=== PATIENT | female | born 1985 | race Caucasian/White ===

== ENCOUNTER → 2017-03-22 | Outpatient (CLI) | payer MEDICAID | LOC: HPND 08:50 | DX: O35.2XX0 Maternal care for (suspected) hereditary disease in fetus, not applicable or unspecified (principal) | CPT/HCPCS: 76816 ==

== ENCOUNTER 2017-05-11 08:53 | Inpatient (IN) | payer MEDICAID ==
[~2017-05-11] VITALS: Ht 167.6 cm; Wt 124.3 kg
[2017-05-11] MEDS: LACTATED RINGER'S 1000 ML INJ 1,000 ML IV SCH (14:29)
[2017-05-11] MEDS ORDERED: DOCUSATE SODIUM 100 MG CAP PO PRN (14:30)
[2017-05-11] MEDS ORDERED: CALCIUM GLUCONATE 10% 1 GM/10 ML VIAL IV PUSH PRN (14:30)
[2017-05-11] MEDS ORDERED: SODIUM CHLORIDE 0.9% FLUSH 5 ML FLUSH IV PRN (14:30)
[2017-05-11] MEDS ORDERED: ONDANSETRON ODT 4 MG TAB PO PRN (14:30)
--- NOTE | 2017-05-11 14:36 | HHI.HP ---
HPI Chief Complaint Pre-Eclampsia Date Seen: May 11, 2017 Travel History International Travel<30 Days: No Contact w/Intl Traveler<30Days: No History of Present Illness HPI Mrs. Quesada is a 31 y/o at 35/5 weeks gestation presenting from [facility] for pre-eclampsia. Patient is seen by [facility] in [place], [place], for her care with Dr. Dick. She was referred to [facility] for elevated blood pressures and elevated 24-hour urine protein suggestive for possible preeclampsia. Per chart review patient's blood pressure in office has been up to 151/88 with her most recent 24-hour urine collection collecting 400 mg of protein. She endorses blurry vision, headaches, and one syncopal episode over the last week. She states that her headaches are increasing in length throughout the day. Her blurry vision is accompanied by seeing spots and does accompany her headaches. She states that the syncopal episode occurred at work and lasted for less than "a few minutes." She denied any seizure-like activity, bowel/bladder incontinence, or post ictal state. Patient states that she has been on an unknown hypertension medication but believes it has been labetalol twice a day 100 mg. She does have a previous history of preeclampsia diagnosed in her second full-term at 39 weeks. She was induced at the time of the diagnosis and administered magnesium sulfate during delivery. She was then treated for approximately 3 years for hypertension, however she reports that she has not required blood pressure medication for the last 4 years. This has also been complicated by gestational diabetes. She states that she is diet-controlled and her blood sugar runs from 80-110s. She has no other complaints and ROS is otherwise negative. Weeks Gestation: 35 Para: 2 : 5 History Past Medical History Narrative Medical Gestational Diabetes Chronic HTN Obesity Obstetric History Obstetric History Second - Term delivery without complications Third - Induced delivery at 39 weeks secondary to pre-eclampsia First and Fourth spontaneous abortions Current with gestational diabetes and PIH Past Surgical History Surgical History: No Previous Surgery Family History Family History: Negative Social History Alcohol Use: No Tobacco Use: No Substance Abuse: No Allergies-Medications (Allergen,Severity, Reaction): Coded Allergies: penicillin G (Verified Allergy, Mild, Hives, 05/11/17) Review of Systems Except as stated in HPI: all other systems reviewed are Neg Physical Exam Narrative GENERAL: Well-nourished, well-developed patient. SKIN: Warm and dry. HEAD: Normocephalic and atraumatic. EYES: No scleral icterus. No injection or drainage. ENT: No nasal drainage noted. Mucous membranes pink. Airway patent. NECK: Supple, trachea midline. No JVD. CARDIOVASCULAR: Regular rate and rhythm without murmurs, gallops, or rubs. RESPIRATORY: Breath sounds equal bilaterally. No accessory muscle use. ABDOMEN/GI: Abdomen soft, non-tender, bowel sounds present, no rebound, no guarding. No right upper quadrant pain. Gravid to 35 weeks size GENITOURINARY: External Genitalia: intact and normal in appearance Cervix: Posterior Dilatation: Closed Effacement: 0% Station: -3 Membranes: Intact Uterine Contractions: None FHT's: Category: 1 Baseline: 140s Reactive: Positive Variability: Moderate Decels: None EXTREMITIES: No cyanosis or edema. Deep tendon reflexes within normal limits. BACK: Nontender without obvious deformity. No CVA tenderness. NEUROLOGICAL: Awake and alert. Motor and sensory grossly within normal limits. Five out of 5 muscle strength in all muscle groups. Normal speech. Caprini VTE Risk Assessment Caprini VTE Risk Assessment: Mod/High Risk (score >= 2) Caprini Risk Assessment Model Point Value = 1 Point Value = 2 Point Value = 3 Point Value = 5 Age 41-60 Minor surgery BMI > 25 kg/m2 Swollen legs Varicose veins or History of unexplained or recurrent spontaneous Oral contraceptives or hormone replacement Sepsis (< 1 month) Serious lung disease, including pneumonia (< 1 month) Abnormal pulmonary function Acute myocardial infarction Congestive heart failure (< 1 month) History of inflammatory bowel disease Medical patient at bed rest Age 61-74 Arthroscopic surgery Major open surgery (> 45 min) Laparoscopic surgery (> 45 min) Malignancy Confined to bed (> 72 hours) Immobilizing plaster cast Central venous access Age >= 75 History of VTE Family history of VTE Factor V Leiden Prothrombin [id number] Lupus anticoagulant Anticardiolipin antibodies Elevated serum homocysteine Heparin-induced thrombocytopenia Other congenital or acquired thrombophilia Stroke (< 1 month) Elective arthroplasty Hip, pelvis, or leg fracture Acute spinal cord injury (< 1 month) Prophylaxis Regimen Total Risk Factor Score Risk Level Prophylaxis Regimen 0-1 Low Early ambulation 2 Moderate Order ONE of the following: *Sequential Compression Device (SCD) *Heparin 5000 units SQ BID 3-4 Higher Order ONE of the following medications: *Heparin 5000 units SQ TID *Enoxaparin/Lovenox 40 mg SQ daily (WT < 150 kg, CrCl > 30 mL/min) *Enoxaparin/Lovenox 30 mg SQ daily (WT < 150 kg, CrCl > 10-29 mL/min) *Enoxaparin/Lovenox 30 mg SQ BID (WT < 150 kg, CrCl > 30 mL/min) AND/OR *Sequential Compression Device (SCD) 5 or more Highest Order ONE of the following medications: *Heparin 5000 units SQ TID (Preferred with Epidurals) *Enoxaparin/Lovenox 40 mg SQ daily (WT < 150 kg, CrCl > 30 mL/min) *Enoxaparin/Lovenox 30 mg SQ daily (WT < 150 kg, CrCl > 10-29 mL/min) *Enoxaparin/Lovenox 30 mg SQ BID (WT < 150 kg, CrCl > 30 mL/min) AND *Sequential Compression Device (SCD) Data Data Vital Signs Reviewed: Yes Orders Orders Us Ob Bpp [facility] Art Dopp/Rpt (05/11/17 ) Assessment/Plan Problem List: (1) 35 weeks gestation of ICD Codes: Z3A.35 - 35 weeks gestation of (2) Pre-eclampsia ICD Codes: O14.90 - Unspecified pre-eclampsia, unspecified trimester Assessment and Plan Mrs. Quesada is a 31 y/o at 35/5 weeks gestation presenting from [facility] for pre-eclampsia who will be admitted for induction of labor at 36 weeks after receiving steroids for lung development. 1. IUP at 35 weeks -Continue routine OB care -Encourage hydration -Continue vitamin -GBS screen: Ordered 2. Preeclampsia -Patient with documented blood pressures to the 150s/80s with 24-hour urine protein of greater than 400 -Patient referred to [facility] who recommends induction -Patient currently without symptoms -CBC, CMP, and uric acid ordered -Patient admitted to antepartum service at this time with plans to induce labor at 36 weeks of (05/13) -Betamethasone 12 mg injection ordered for today, 05/11, and tomorrow 05/12 -Continue Labetalol 100mg BID 3. Gestational diabetes -Monitor glucose before every meal and nightly -Diet OB carb consistent diet SDW: Anatoliy Ervin MD R2 May 11, 2017 14:36
[2017-05-11] MEDS ORDERED: BETAMETHASONE SOD PHOS/ACETATE SUSP 30 MG/5 ML VIAL IM ONE (16:00)
[2017-05-11 16:24] VITALS: BP 130/45; PULSE 103
[2017-05-11 16:45] VITALS: RESP 20
[2017-05-11 16:58] LABS: HEMATOCRIT 35.2 % (35.0-46.0); MEAN CELL VOLUME 82.5 FL (80.0-100.0); MEAN CORPUSCULAR HEMOGLOBIN 26.8 PG (27.0-34.0); MEAN CORPUSCULAR HGB CONC 32.4 % (32.0-36.0); PLATELET COUNT 259 TH/MM3 (150-450); RED BLOOD COUNT 4.27 MIL/MM3 (4.00-5.30); RED CELL DISTRIBUTION WIDTH 14.4 % (11.6-17.2); REVIEW FLAG FINAL; WHITE BLOOD COUNT 10.2 TH/MM3 (4.0-11.0)
[2017-05-11 17:22] LABS: ANION GAP 9 MEQ/L (5-15); AST (GOT) 28 U/L (15-37); BICARBONATE 24.5 MEQ/L (21.0-32.0); BLOOD UREA NITROGEN 5 MG/DL (7-18); CHLORIDE 105 MEQ/L (98-107); GLOMERULAR FILTRATION RATE 186 ML/MIN (>89); POTASSIUM 3.5 MEQ/L (3.5-5.1); SODIUM (NA) 138 MEQ/L (136-145); URIC ACID 4.8 MG/DL (2.6-6.0)
[2017-05-11 17:23] LABS: ALT (GPT) 46 U/L (10-53)
[2017-05-11 17:26] LABS: ALKALINE PHOSPHATASE 88 U/L (45-117); TOTAL BILIRUBIN ADULT 0.5 MG/DL (0.2-1.0)
[2017-05-11 19:43] VITALS: RESP 20; TEMP 98.5
[2017-05-11 19:44] VITALS: BP 122/65; PULSE 88
[2017-05-11] MEDS: SODIUM CHLORIDE 0.9% FLUSH 5 ML FLUSH IV SCH (21:00)
[2017-05-11] MEDS: LABETALOL HCL 100 MG TAB PO SCH (21:30)
[2017-05-11] MEDS ORDERED: DEXTROSE 50% IN WATER 50 ML VIAL(D50) IV PUSH PRN (23:00)
[2017-05-11] MEDS ORDERED: GLUCAGON 1 MG/ML VIAL OTHER PRN (23:00)
[2017-05-11 23:06] VITALS: BP 127/75; PULSE 106
[2017-05-12] VITALS (14 sets, daily range): BP systolic 105–138; BP diastolic 58–80; PULSE 18–118; RESP 17–18; TEMP 98.2–98.6
[2017-05-12] MEDS: LACTATED RINGER'S 1000 ML INJ 1,000 ML IV SCH ×2 (03:49→17:09)
[2017-05-12] MEDS: INDIVIDUALIZED INSULIN NOVOLIN REGULAR SUPPLEMENTAL SCALE SQ SCH ×2 (07:00→11:31)
[2017-05-12 08:11] LABS: BACTERIA, URINE RARE /hpf; BLOOD, URINE NEG (NEG); COMMENT (UR) CULT NOT INDICATED; CULTURE IF INDICATED CULT NOT INDICATED; GLUCOSE,URINE NEG (NEG); KETONE, URINE 80 mg/dL (NEG); MUCUS URINE FEW /lpf (OCC); NITRITE,URINE NEG (NEG); PH, URINE 6.5 (5.0-8.5); SQUAMOUS EPITHELIAL CELL URINE 5 /hpf (0-5); URINE COLOR YELLOW (YELLW/STRAW)
--- NOTE | 2017-05-12 08:13 | PD.OB.ANTE ---
Subjective Diagnosis: (1) 35 weeks gestation of Diagnosis: Principal (2) Pre-eclampsia Diagnosis: Principal Interval History Patient seen and examined this morning a medical team. No acute events overnight per nursing staff. Vital signs remained stable. Patient reports only complaint has a mild headache this morning that has resolved without medication. She denies any visual changes, right upper quadrant pain, dizziness , or other neurologic symptoms. She states her glucose was elevated last night likely secondary to her steroid injection. Otherwise she has no complaints and denies a complete review of systems. Antepartum ROS: Reports: New complaints, movement normal, Denies: Loss of fluid, Vaginal bleeding, Contractions Objective Vital Signs Vital Signs Date Time Temp Pulse Resp B/P (MAP) Pulse Ox O2 Delivery O2 Flow Rate FiO2 05/12/17 06:03 115 138/80 (99) 05/12/17 06:02 98.6 18 05/12/17 02:08 100 114/58 (76) 05/11/17 23:06 106 127/75 (92) 05/11/17 19:44 88 122/65 (84) 05/11/17 19:43 98.5 20 05/11/17 16:45 20 05/11/17 16:24 103 130/45 (73) Lab & Micro Results Test 05/11/17 16:20 White Blood Count 10.2 TH/MM3 Red Blood Count 4.27 MIL/MM3 Hemoglobin 11.4 GM/DL Hematocrit 35.2 % Mean Corpuscular Volume 82.5 FL Mean Corpuscular Hemoglobin 26.8 PG Mean Corpuscular Hemoglobin Concent 32.4 % Red Cell Distribution Width 14.4 % Platelet Count 259 TH/MM3 Mean Platelet Volume 8.7 FL Blood Urea Nitrogen 5 MG/DL Creatinine 0.40 MG/DL Random Glucose 76 MG/DL Total Protein 6.5 GM/DL Albumin 2.5 GM/DL Calcium Level 8.7 MG/DL Uric Acid 4.8 MG/DL Alkaline Phosphatase 88 U/L Aspartate Amino Transf (AST/SGOT) 28 U/L Alanine Aminotransferase (ALT/SGPT) 46 U/L Total Bilirubin 0.5 MG/DL Sodium Level 138 MEQ/L Potassium Level 3.5 MEQ/L Chloride Level 105 MEQ/L Carbon Dioxide Level 24.5 MEQ/L Anion Gap 9 MEQ/L Estimat Glomerular Filtration Rate 186 ML/MIN Physical Exam GENERAL: Well-nourished, well-developed patient. CARDIOVASCULAR: Regular rate and rhythm without murmurs, gallops, or rubs. RESPIRATORY: Breath sounds equal bilaterally. No accessory muscle use. ABDOMEN/GI: Abdomen soft, non-tender. Fundus: 35 weeks FHT's: Category: 1 Baseline: 140s Reactive: Positive Variability: Moderate Decels: None EXTREMITIES: No cyanosis or edema, non-tender, without signs of DVT. Reflexes within normal limits. Assessment and Plan Problem List: (1) 35 weeks gestation of ICD Codes: Z3A.35 - 35 weeks gestation of Status: Acute (2) Pre-eclampsia ICD Codes: O14.90 - Unspecified pre-eclampsia, unspecified trimester Status: Acute Assessment and Plan Mrs. Quesada is a 31 y/o at 35/5 weeks gestation presenting from [facility] for pre-eclampsia who will be admitted for induction of labor at 36 weeks after receiving steroids for lung development. 1. IUP at 35 weeks -Continue routine OB care -Encourage hydration -Continue vitamin -GBS screen: Pending -UA: Pending 2. Preeclampsia -Patient with documented blood pressures to the 150s/80s with 24-hour urine protein of greater than 400 -Patient referred to [facility] who recommends induction -Patient currently without symptoms -CBC: WBC 10.2, H/H 11/35, platelets 259 -CMP: Within normal limits, AST 28, ALT 46 -Uric acid: 4.8 -Patient admitted to antepartum service at this time with plans to induce labor at 36 weeks of (05/13) -Betamethasone 12 mg injection on 05/11 at approximately 1600, second injection of ordered 05/12 at 1600 -Continue Labetalol 100mg BID 3. Gestational diabetes -Monitor glucose before every meal and nightly -Diet OB carb consistent diet -Sliding-scale insulin per protocol DW: Anatoliy Ervin MD R2 May 12, 2017 08:13
[2017-05-12] MEDS: CALCIUM CARBONATE 500 MG CHEWABLE TAB CHEW SCH ×2 (08:25→20:39)
[2017-05-12] MEDS: MULTIVIT/MIN/PREN/FOL AC/IRON PRENATAL TAB PO SCH (08:25)
[2017-05-12] MEDS: SODIUM CHLORIDE 0.9% FLUSH 5 ML FLUSH IV SCH ×2 (08:25→21:00)
[2017-05-12] MEDS: LABETALOL HCL 100 MG TAB PO SCH ×2 (08:25→20:39)
[2017-05-12] MEDS ORDERED: BETAMETHASONE SOD PHOS/ACETATE SUSP 30 MG/5 ML VIAL IM ONE (16:00)
[2017-05-12] MEDS: INSULIN NovoLIN REGULAR SUPPLEMENTAL SCALE SQ SCH ×2 (16:38→22:10)
[2017-05-13] VITALS (25 sets, daily range): BP systolic 110–140; BP diastolic 55–73; PULSE 90–112; RESP 18–20; TEMP 98.1–98.7
[2017-05-13] MEDS: LACTATED RINGER'S 1000 ML INJ 1,000 ML IV SCH (06:08)
[2017-05-13] MEDS: INSULIN NovoLIN REGULAR SUPPLEMENTAL SCALE SQ SCH ×2 (08:00→13:06)
[2017-05-13] MEDS: SODIUM CHLORIDE 0.9% FLUSH 5 ML FLUSH IV SCH (08:58)
[2017-05-13] MEDS: LABETALOL HCL 100 MG TAB PO SCH (08:59)
[2017-05-13] MEDS: MULTIVIT/MIN/PREN/FOL AC/IRON PRENATAL TAB PO SCH (08:59)
[2017-05-13] MEDS: CALCIUM CARBONATE 500 MG CHEWABLE TAB CHEW SCH (09:00)
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
[2017-05-13 12:42] LABS: HEMATOCRIT 33.1 % (35.0-46.0); MEAN CELL VOLUME 83.4 FL (80.0-100.0); MEAN CORPUSCULAR HEMOGLOBIN 26.8 PG (27.0-34.0); MEAN CORPUSCULAR HGB CONC 32.2 % (32.0-36.0); PLATELET COUNT 280 TH/MM3 (150-450); RED BLOOD COUNT 3.97 MIL/MM3 (4.00-5.30); RED CELL DISTRIBUTION WIDTH 14.7 % (11.6-17.2); REVIEW FLAG FINAL; WHITE BLOOD COUNT 12.7 TH/MM3 (4.0-11.0)
[2017-05-13 13:09] LABS: ANION GAP 8 MEQ/L (5-15); AST (GOT) 19 U/L (15-37); BICARBONATE 25.5 MEQ/L (21.0-32.0); BLOOD UREA NITROGEN 9 MG/DL (7-18); CHLORIDE 106 MEQ/L (98-107); GLOMERULAR FILTRATION RATE 138 ML/MIN (>89); POTASSIUM 3.7 MEQ/L (3.5-5.1); SODIUM (NA) 139 MEQ/L (136-145)
[2017-05-13 13:10] LABS: ALT (GPT) 36 U/L (10-53)
[2017-05-13 13:12] LABS: ALKALINE PHOSPHATASE 81 U/L (45-117); TOTAL BILIRUBIN ADULT 0.3 MG/DL (0.2-1.0)
--- NOTE | 2017-05-13 15:09 | HHI.PR ---
Addendum to Inpatient Note Addendum Reason: Additional Documentation Additional Information Patient to be discharged home today. Patient's blood pressures remain below severe limits as well as her CBC and CMP. Patient's protein to creatinine ratio is 0.27. She currently meets criteria for chronic hypertension with superimposed preeclampsia without severe features. She will be discharged home with instructions to return to OB diagnostics for repeat BPP with Doppler tomorrow at 1300. She is to continue her labetalol 100 mg twice a day. She is also been scheduled for an induction next 05/20/17, at 37 weeks gestation. DW: Dr. Rodriguez (Anatoliy Ahumada MD R2) Additional Information Patient seen and evaluated with resident under direct supervision, agree with assessment and plan. (Nehemiah Rodriguez MD) Anatoliy Ahumada MD R2 May 13, 2017 15:09 Nehemiah Rodriguez MD May 13, 2017 15:11
[2017-05-13] MEDS ORDERED: LABE100T2 PO (15:10)
--- NOTE | 2017-05-13 15:12 | HHI.DCPOC ---
Discharge Care Plan Diagnosis: (1) Pre-eclampsia Report Symptoms to Your Doctor -Temperature above 100.5 degrees -Redness, of incision or excessive or foul smelling drainage -Unusual pain or calf pain -Increased vaginal bleeding -Painful or difficulty urinating -Feelings of extreme sadness or anxiety after 2 weeks Goals to Promote Your Health * To prevent worsening of your condition and complications * To maintain your health at the optimal level Directions to Meet Your Goals Take your medications as prescribed Follow your dietary instruction Follow activity as directed Ensure plenty of rest for recovery Drink fluids for hydration Keep your appointments as scheduled Take your immunizations and boosters as scheduled If your symptoms worsen call your PCP, if no PCP go to Urgent Care Center or Emergency Room Smoking is Dangerous to Your Health. Avoid second hand smoke Call the 24-hour crisis hotline for domestic abuse at Anatoliy Ahumada MD R2 May 13, 2017 15:12 Nehemiah Rodriguez MD May 13, 2017 15:14
== END 2017-05-13 15:28 | disposition home or self-care (01) | DRG 781 ==
LOC: HPND 08:53 → H2EB 11:01 → OBSVTOIN 16:16
PROVIDERS: ADMIT Obstetrics & Gynecology Maternal & Fetal Medicine; ATTEND Obstetrics & Gynecology Maternal & Fetal Medicine
DX: O11.3 Pre-existing hypertension with pre-eclampsia, third trimester (principal); Z68.41 Body mass index [BMI] 40.0-44.9, adult; O24.410 Gestational diabetes mellitus in pregnancy, diet controlled; E66.9 Obesity, unspecified; O99.213 Obesity complicating pregnancy, third trimester; Z3A.35 35 weeks gestation of pregnancy; O10.013 Pre-existing essential hypertension complicating pregnancy, third trimester
CPT/HCPCS: 76816; 76818; 76820; 80053; 81001; 82570; 82948; 84156; 84550; 85027; J0702

== ENCOUNTER 2017-05-14 13:35 | Emergency (ER) | payer MEDICAID, OTHER ==
[~2017-05-14 13:35] MED LIST: LABE100T2 PO
--- NOTE | 2017-05-14 14:44 | PD ---
HPI Chief Complaint BPP and BP check Date Seen: May 14, 2017 Time Seen: 14:41 Travel History International Travel<30 Days: No Contact w/Intl Traveler<30Days: No Known Affected Area: No History of Present Illness HPI 31yo at 36 weeks gestation here for BPP and BP check. Was discharged yesterday after BP evaluation and 24 hr urine protein. Patient on labetalol for chronic hypertension and is returning on Tuesday at 37 weeks for induction of labor due to proteinuria. BP 116/72 Weeks Gestation: 36 Para: 2 : 3 Last Menstrual Period: May 14, 2017 Allergies-Medications (Allergen,Severity, Reaction): Coded Allergies: penicillin G (Verified Allergy, Mild, Hives, 05/11/17) Home Meds Active Scripts Labetalol (Labetalol) 100 Mg Tab, 100 MG PO Q12HR, #60 TAB Prov:Anatoliy Ahumada MD R2 05/13/17 Physical Exam Narrative GENERAL: Well-nourished, well-developed patient. SKIN: Warm and dry. HEAD: Normocephalic and atraumatic. EYES: No scleral icterus. No injection or drainage. ENT: No nasal drainage noted. Mucous membranes pink. Airway patent. NECK: Supple, trachea midline. No JVD. CARDIOVASCULAR: Regular rate and rhythm without murmurs, gallops, or rubs. RESPIRATORY: Breath sounds equal bilaterally. No accessory muscle use. BREASTS: Bilateral exam showed no masses , no retractions, no nipple discharge. ABDOMEN/GI: Abdomen soft, non-tender, bowel sounds present, no rebound, no guarding Gravid to [-] weeks size Fundal Height: [-] GENITOURINARY: External Genitalia: intact and normal in appearance BUS glands: [-] Cervix: [-] Dilatation: [-] Effacement: [-] Station: [-] Presentation: [-] Membranes: [intact or ruptured] Uterine Contractions: [-] FHT's: Category: [-] Baseline: [-] Reactive: [-] Variability: [-] Decels: [-] EXTREMITIES: No cyanosis or edema. BACK: Nontender without obvious deformity. No CVA tenderness. NEUROLOGICAL: Awake and alert. Motor and sensory grossly within normal limits. Five out of 5 muscle strength in all muscle groups. Normal speech. Data Data Vital Signs Reviewed: Yes Orders Orders Vital Signs (Adult) .ON ADMISSION (05/14/17 14:00) ^ Labor Status (05/14/17 14:00) Us Ob Bpp Wo Nst W Umb Art Dop (05/14/17 14:00) MDM Medical Record Reviewed: Yes Plan BPP 06/14 36 weeks with chronic hypertension and mild superimposed preeclampsia for induction at 37 weeks (next Tuesday) Diagnosis Diagnosis: Primary Impression: 36 weeks gestation of Additional Impressions: Chronic hypertension affecting Mild pre-eclampsia Disposition: 01 DISCHARGE HOME Patient Instructions: General Instructions, Preeclampsia (ED) Departure Forms: Tests/Procedures Tasha Herrera MD May 14, 2017 14:44
== END 2017-05-14 14:47 | disposition home or self-care (01) ==
LOC: HOBED 13:35
DX: O11.3 Pre-existing hypertension with pre-eclampsia, third trimester (principal); Z3A.36 36 weeks gestation of pregnancy; Z79.899 Other long term (current) drug therapy; Z88.0 Allergy status to penicillin
CPT/HCPCS: 59025; 76819; 76820

== ENCOUNTER 2017-05-18 07:48 | Inpatient (IN) | payer MEDICAID, OTHER ==
[2017-05-18] VITALS (114 sets, daily range): BP systolic 99–135; BP diastolic 45–89; PULSE 77–111; RESP 14–18; TEMP 98.1–98.4; O2SAT 98–100
[~2017-05-18] VITALS: Ht 167.6 cm; Wt 122.0 kg
--- NOTE | 2017-05-18 09:25 | PD ---
HPI Chief Complaint Headache with swelling Date Seen: May 18, 2017 (Anatoliy Ahumada MD R2) Travel History International Travel<30 Days: No Contact w/Intl Traveler<30Days: No (Anatoliy Ahumada MD R2) History of Present Illness HPI Mrs. Quesada is a 31-year-old presenting at 36/5 weeks gestation for headaches and lower extremity swelling. Patient was recently hospitalized and diagnosed with preeclampsia with recommendations tenderness at 37 weeks gestation (05/20). She was discharged home and returned on 05/14 for repeat BPP that was 06/14. Today she presents with mild headache and lower extremity swelling. She states the headache is "not bad" but wanted to make sure everything was okay. She also endorses mild right sided flank pain since this morning. She endorses no visual changes, right upper quadrant pain, loss of fluid, vaginal bleeding, discharge, or other neurological symptoms. She has no other complaints. Complete review of systems is otherwise negative. (Anatoliy Ahumada MD R2) History Past Medical History Narrative Medical Gestational Diabetes Chronic HTN Obesity (Anatoliy Ahumada MD R2) Obstetric History Obstetric History Second - Term delivery without complications Third - Induced delivery at 39 weeks secondary to pre-eclampsia First and Fourth spontaneous abortions Current with gestational diabetes and PIH (Anatoliy Ahumada MD R2) Past Surgical History Surgical History: No Previous Surgery (Anatoliy Ahumada MD) Family History Family History: Negative (Anatoliy Ahumada MD) Social History Alcohol Use: No Tobacco Use: No Substance Abuse: No (Anatoliy Ahumada MD R2) Allergies-Medications (Allergen,Severity, Reaction): Coded Allergies: penicillin G (Verified Allergy, Mild, Hives, 05/11/17) Home Meds Active Scripts Labetalol (Labetalol) 100 Mg Tab, 100 MG PO Q12HR, #60 TAB Prov:Anatoliy Ahumada MD R2 05/13/17 Review of Systems Except as stated in HPI: all other systems reviewed are Neg Neurologic: Headache (Anatoliy Ahumada MD R2) Physical Exam Narrative GENERAL: Well-nourished, well-developed patient. SKIN: Warm and dry. HEAD: Normocephalic and atraumatic. EYES: No scleral icterus. No injection or drainage. ENT: No nasal drainage noted. Mucous membranes pink. Airway patent. NECK: Supple, trachea midline. No JVD. CARDIOVASCULAR: Regular rate and rhythm without murmurs, gallops, or rubs. RESPIRATORY: Breath sounds equal bilaterally. No accessory muscle use. ABDOMEN/GI: Abdomen soft, non-tender, bowel sounds present, no rebound, no guarding Gravid to 36/5 GENITOURINARY: External Genitalia: intact and normal in appearance Cervix: Posterior Dilatation: 1-2cm Effacement: 50% Station: -3 Presentation: Cephalic Membranes: Intact Uterine Contractions: Q4min originally, has since stopped FHT's: Category: 1 Baseline: 150s Reactive: Positive Variability: Moderate Decels: None EXTREMITIES: No cyanosis. Trace edema on BL LE. BACK: Nontender without obvious deformity. No CVA tenderness. NEUROLOGICAL: Awake and alert. Motor and sensory grossly within normal limits. Five out of 5 muscle strength in all muscle groups. Normal speech. (Anatoliy Ahumada MD R2) Data Data Vital Signs Reviewed: Yes Orders Orders Vital Signs (Adult) .ON ADMISSION (05/18/17 08:57) ^ Labor Status (05/18/17 08:57) ^ Non Stress Test (05/18/17 08:57) ^ Hydration (05/18/17 08:57) Cbc No Diff, Includes Plts (05/18/17 08:57) Comprehensive Metabolic Panel (05/18/17 08:57) Us Ob Bpp Wo Nst (05/18/17 08:57) (Anatoliy Ahumada MD R2) [facility] Medical Record Reviewed: Yes Plan Mrs. Quesada is a 31 y/o at 36/5 weeks gestation with pre-eclampsia presenting with mild headache. 1. IUP at 36 weeks -Continue routine OB care -Encourage hydration -Continue vitamin -GBS screen: Ordered -Betamethasone 12 mg injection received 05/11 and 05/12 2. Preeclampsia -Patient with documented blood pressures to the 150s/80s with 24-hour urine protein of greater than 400 previously; currently 140/79 -Patient referred to [facility] who recommends induction at 37 weeks, 05/20 -Patient currently with mild R sided headache in the frontotemporal area -CBC and CMP ordered -Urine dipstick with trace protein only -BPP ordered with OB diagnostics, most recent 06/14 on 05/14 -Continue Labetalol 100mg BID, received this morning 3. Gestational diabetes -Diet controlled -Continue to monitor SDW: Dr. Whitaker Update: Patient seen for after BPP by Dr. Morales, [facility], for evaluation who recommends induction at this time. Patient agrees with medical plan and all questions answered. Orders placed. SDW: Dr. Sanchez (Anatoliy Ahumada MD R2) Diagnosis Diagnosis: Primary Impression: 36 weeks gestation of Additional Impressions: Gestational diabetes Pre-eclampsia Attestation Patient seen and examined. Agree with resident's assessment/plan. (Hailee Sanchez MD) Anatoliy Ahumada MD R2 May 18, 2017 09:25 Hailee Sanchez MD May 18, 2017 11:52
[2017-05-18 09:40] LABS: HEMATOCRIT 33.9 % (35.0-46.0); MEAN CORPUSCULAR HEMOGLOBIN 27.8 PG (27.0-34.0); MEAN CORPUSCULAR HGB CONC 33.5 % (32.0-36.0); PLATELET COUNT 239 TH/MM3 (150-450); RED BLOOD COUNT 4.08 MIL/MM3 (4.00-5.30); RED CELL DISTRIBUTION WIDTH 15.1 % (11.6-17.2); REVIEW FLAG FINAL; WHITE BLOOD COUNT 10.4 TH/MM3 (4.0-11.0)
[2017-05-18 09:41] LABS: ANION GAP 9 MEQ/L (5-15); AST (GOT) 15 U/L (15-37); BICARBONATE 23.9 MEQ/L (21.0-32.0); BLOOD UREA NITROGEN 10 MG/DL (7-18); CHLORIDE 103 MEQ/L (98-107); GLOMERULAR FILTRATION RATE 147 ML/MIN (>89); POTASSIUM 3.6 MEQ/L (3.5-5.1); SODIUM (NA) 136 MEQ/L (136-145)
[2017-05-18 09:42] LABS: ALT (GPT) 23 U/L (10-53)
[2017-05-18 09:44] LABS: ALKALINE PHOSPHATASE 94 U/L (45-117); TOTAL BILIRUBIN ADULT 0.3 MG/DL (0.2-1.0)
[2017-05-18] MEDS: LACTATED RINGER'S 1000 ML INJ 1,000 ML IV SCH ×2 (11:35→23:28)
[2017-05-18] MEDS ORDERED: LACTATED RINGER'S 1000 ML INJ 1,000 ML IV PRN (11:35)
--- NOTE | 2017-05-18 11:43 | HHI.HP ---
History & Physical H&P HPI Chief Complaint Headache with swelling Date Seen: May 18, 2017 Travel History International Travel<30 Days: No Contact w/Intl Traveler<30Days: No History of Present Illness HPI Mrs. Quesada is a 31-year-old presenting at 36/5 weeks gestation for headaches and lower extremity swelling. Patient was recently hospitalized and diagnosed with preeclampsia with recommendations tenderness at 37 weeks gestation (05/20). She was discharged home and returned on 05/14 for repeat BPP that was 06/14. Today she presents with mild headache and lower extremity swelling. She states the headache is "not bad" but wanted to make sure everything was okay. She also endorses mild right sided flank pain since this morning. She endorses no visual changes, right upper quadrant pain, loss of fluid, vaginal bleeding, discharge, or other neurological symptoms. She has no other complaints. Complete review of systems is otherwise negative. History (Limited) History Past Medical History Narrative Medical Gestational Diabetes Chronic HTN Obesity Obstetric History Obstetric History Second - Term delivery without complications Third - Induced delivery at 39 weeks secondary to pre-eclampsia First and Fourth spontaneous abortions Current with gestational diabetes and PIH Past Surgical History Surgical History: No Previous Surgery Family History Family History: Negative Social History Alcohol Use: No Tobacco Use: No Substance Abuse: No Allergies-Medications Allergies-Medications (Allergen,Severity, Reaction): Coded Allergies: penicillin G (Verified Allergy, Mild, Hives, 05/11/17) Home Meds Active Scripts Labetalol (Labetalol) 100 Mg Tab, 100 MG PO Q12HR, #60 TAB Prov:Anatoliy Ahumada MD R2 05/13/17 ROS Review of Systems Except as stated in HPI: all other systems reviewed are Neg Neurologic: Headache Physical Exam Physical Exam Narrative GENERAL: Well-nourished, well-developed patient. SKIN: Warm and dry. HEAD: Normocephalic and atraumatic. EYES: No scleral icterus. No injection or drainage. ENT: No nasal drainage noted. Mucous membranes pink. Airway patent. NECK: Supple, trachea midline. No JVD. CARDIOVASCULAR: Regular rate and rhythm without murmurs, gallops, or rubs. RESPIRATORY: Breath sounds equal bilaterally. No accessory muscle use. ABDOMEN/GI: Abdomen soft, non-tender, bowel sounds present, no rebound, no guarding Gravid to 36/5 GENITOURINARY: External Genitalia: intact and normal in appearance Cervix: Posterior Dilatation: 1-2cm Effacement: 50% Station: -3 Presentation: Cephalic Membranes: Intact Uterine Contractions: Q4min originally, has since stopped FHT's: Category: 1 Baseline: 150s Reactive: Positive Variability: Moderate Decels: None EXTREMITIES: No cyanosis. Trace edema on BL LE. BACK: Nontender without obvious deformity. No CVA tenderness. NEUROLOGICAL: Awake and alert. Motor and sensory grossly within normal limits. Five out of 5 muscle strength in all muscle groups. Normal speech. Data Data Data Vital Signs Reviewed: Yes Orders Orders Vital Signs (Adult) .ON ADMISSION (05/18/17 08:57) ^ Labor Status (05/18/17 08:57) ^ Non Stress Test (05/18/17 08:57) ^ Hydration (05/18/17 08:57) Cbc No Diff, Includes Plts (05/18/17 08:57) Comprehensive Metabolic Panel (05/18/17 08:57) Us Ob Bpp Wo Nst (05/18/17 08:57) [facility] MDM Medical Record Reviewed: Yes Plan Mrs. Quesada is a 31 y/o at 36/5 weeks gestation with pre-eclampsia presenting with mild headache. 1. IUP at 36 weeks -Continue routine OB care -Encourage hydration -Continue vitamin -GBS screen: Ordered -Betamethasone 12 mg injection received 05/11 and 05/12 2. Preeclampsia -Patient with documented blood pressures to the 150s/80s with 24-hour urine protein of greater than 400 previously; currently 140/79 -Patient referred to [facility] who recommends induction at 37 weeks, 05/20 -Patient currently with mild R sided headache in the frontotemporal area -CBC and CMP ordered -Urine dipstick with trace protein only -BPP ordered with OB diagnostics, most recent 06/14 on 05/14 -Continue Labetalol 100mg BID, received this morning 3. Gestational diabetes -Diet controlled -Continue to monitor SDW: Dr. Whitaker Update: Patient seen for after BPP by Dr. Morales, [facility], for evaluation who recommends induction at this time. Patient agrees with medical plan and all questions answered. Orders placed. SDW: Dr. Sanchez Diagnosis Diagnosis: Primary Impression: 36 weeks gestation of Additional Impressions: Gestational diabetes Pre-eclampsia (Anatoliy Ahumada MD R2) H&P Patient seen and examined. History of CHTN, superimposed Pre Eclampsia, and Gestational DM. Per D/w MFM, induction is recommended. R/B/A of induction d/w patient. All questions answered. (Hailee Sanchez MD) Anatoliy Ahumada MD R2 May 18, 2017 11:43 Hailee Sanchez MD May 18, 2017 11:51
[2017-05-18] MEDS ORDERED: CITRIC ACID-SODIUM CITRATE LIQ 30 ML UDC PO SCH (11:45)
[2017-05-18] MEDS ORDERED: ONDANSETRON HCL 4 MG/2 ML VIAL IV PRN (11:45)
[2017-05-18] MEDS ORDERED: OXYTOCIN 30 UNITS-500ML PREMIX 500 ML IV ONE (11:45)
[2017-05-18] MEDS ORDERED: MINERAL OIL 10 ML VIAL TOPICAL PRN (11:45)
[2017-05-18] MEDS ORDERED: LIDOCAINE HCL 1% 50 ML VIAL INFIL PRN (11:45)
[2017-05-18] MEDS ORDERED: LIDOCAINE HCL 1% 50 ML VIAL I-DERMAL PRN (11:45)
[2017-05-18] MEDS ORDERED: SODIUM CHLOR 0.9% 1000 ML INJ 1,000 ML IV PRN (11:55)
[2017-05-18] MEDS ORDERED: SODIUM CHLORID 0.9% 500 ML INJ 500 ML IV PRN (12:00)
[2017-05-18 13:30] LABS: AUTOMATED NEUTROPHIL # 7.8 TH/MM3 (1.8-7.7); BASOPHIL # 0.1 TH/MM3 (0-0.2); BASOPHIL % 0.5 % (0.0-2.0); EOSINOPHIL % 0.2 % (0.0-4.0); HEMATOCRIT 35.5 % (35.0-46.0); HEMO FLAGS DIFF FINAL; LYMPH % 26.8 % (9.0-44.0); LYMPHOCYTE # 3.2 TH/MM3 (1.0-4.8); MEAN CELL VOLUME 83.5 FL (80.0-100.0); MEAN CORPUSCULAR HEMOGLOBIN 27.5 PG (27.0-34.0); MEAN CORPUSCULAR HGB CONC 32.9 % (32.0-36.0); MONO % 7.8 % (0.0-8.0); NEUT % 64.7 % (16.0-70.0); PLATELET COUNT 275 TH/MM3 (150-450); RED BLOOD COUNT 4.25 MIL/MM3 (4.00-5.30); RED CELL DISTRIBUTION WIDTH 14.9 % (11.6-17.2); WHITE BLOOD COUNT 12.1 TH/MM3 (4.0-11.0)
[2017-05-18] MEDS: MAGNESIUM SULFATE 40 GM PREMIX 1,000 ML IV SCH (13:54)
[2017-05-18 13:56] LABS: BACTERIA, URINE MOD /hpf; BLOOD, URINE NEG (NEG); COMMENT (UR) CULTURE INDICATED; CULTURE IF INDICATED CULTURE INDICATED; GLUCOSE,URINE NEG (NEG); KETONE, URINE 10 mg/dL (NEG); MUCUS URINE FEW /lpf (OCC); NITRITE,URINE NEG (NEG); PH, URINE 6.5 (5.0-8.5); SQUAMOUS EPITHELIAL CELL URINE 33 /hpf (0-5); URINE COLOR YELLOW (YELLW/STRAW)
[2017-05-18] MEDS ORDERED: DEXTROSE 50% IN WATER 50 ML VIAL(D50) IV PRN (14:00)
[2017-05-18] MEDS ORDERED: MAGNESIUM SULFATE 4 GM PREMIX 100 ML IV ONE (14:00)
[2017-05-18] MEDS ORDERED: GLUCAGON 1 MG/ML VIAL OTHER PRN (14:00)
[2017-05-18] MEDS ORDERED: MISOPROSTOL 25 MCG SUPP VAGINAL ONE (14:00)
[2017-05-18] MEDS: INSULIN ASPART SUPPLEMENTAL SCALE SQ SCH ×2 (15:32→21:00)
[2017-05-18 18:07] LABS: RUBELLA IGG ANTIBODY 19.5 IU/mL (10.0-500.0); RUBELLA STATUS IMMUNE (IMMUNE)
[2017-05-18] MEDS: MISOPROSTOL 25 MCG SUPP VAGINAL PRN (20:11)
[2017-05-19] VITALS (89 sets, daily range): BP systolic 121–139; BP diastolic 71–86; PULSE 41–226; RESP 14–20; TEMP 97.7–98.1; O2SAT 98–100
[2017-05-19] MEDS: MISOPROSTOL 25 MCG SUPP VAGINAL PRN ×2 (00:25→04:43)
[2017-05-19] MEDS: LACTATED RINGER'S 1000 ML INJ 1,000 ML IV SCH ×3 (03:35→19:35)
--- NOTE | 2017-05-19 08:26 | PD.OB.ANTE ---
Subjective Diagnosis: (1) 36 weeks gestation of Diagnosis: Principal (2) Pre-eclampsia Diagnosis: Principal (3) Gestational diabetes Diagnosis: Principal Interval History Patient seen and examined at bedside. Pt stated she had a headache that resolved with medication. Pt on cytotec x4 and magnesium bag. Pt denies N/V, RUQ abdominal pain, vision changes, CP. Antepartum ROS: Denies: New complaints (Nirmala Lynn MD R1) Attestation Patient seen and examined. Cervix- 1-2 ext/FT int. S/p cytotec 25mcg x 4. Will continue with 50mcg of cytotec. Continue Magnesium Sulfate. Continue to closely monitor. All questions answered. (Hailee Sanchez MD) Objective Vital Signs Vital Signs Date Time Temp Pulse Resp B/P (MAP) Pulse Ox O2 Delivery O2 Flow Rate FiO2 05/19/17 07:30 97.9 20 05/19/17 07:25 143 05/19/17 07:10 86 05/19/17 07:05 61 05/19/17 07:01 87 125/72 (89) 05/19/17 07:00 92 05/19/17 06:45 100 05/19/17 06:40 91 05/19/17 06:30 191 05/19/17 06:30 18 05/19/17 06:05 95 05/19/17 06:01 101 123/73 (90) 05/19/17 06:00 88 05/19/17 06:00 100 05/19/17 05:10 77 05/19/17 05:01 85 124/71 (88) 05/19/17 05:00 100 05/19/17 04:30 97.8 16 05/19/17 04:30 84 05/19/17 04:20 42 05/19/17 04:15 41 05/19/17 04:10 41 05/19/17 04:05 43 05/19/17 04:01 81 133/72 (92) 05/19/17 04:00 99 05/19/17 03:40 78 05/19/17 03:35 83 05/19/17 03:15 86 05/19/17 03:10 86 05/19/17 03:05 79 05/19/17 03:01 82 136/83 (100) 05/19/17 03:00 14 100 05/19/17 03:00 79 05/19/17 02:55 77 05/19/17 02:50 88 05/19/17 02:45 79 05/19/17 02:40 80 05/19/17 02:35 85 05/19/17 02:30 85 05/19/17 02:25 84 05/19/17 02:20 79 05/19/17 02:15 86 05/19/17 02:10 86 05/19/17 02:05 83 05/19/17 02:05 83 05/19/17 02:01 84 129/82 (98) 05/19/17 02:00 84 05/19/17 02:00 16 100 05/19/17 01:55 81 05/19/17 01:50 87 05/19/17 01:45 83 05/19/17 01:40 89 05/19/17 01:35 86 05/19/17 01:30 87 05/19/17 01:25 88 05/19/17 01:20 86 05/19/17 01:15 84 05/19/17 01:10 85 05/19/17 01:05 85 05/19/17 01:01 82 125/82 (96) 05/19/17 01:00 85 05/19/17 01:00 98 05/19/17 00:55 84 05/19/17 00:50 81 05/19/17 00:45 84 05/19/17 00:40 79 05/19/17 00:35 83 05/19/17 00:30 83 05/19/17 00:25 84 05/19/17 00:20 84 05/19/17 00:15 87 05/19/17 00:10 85 05/19/17 00:05 83 05/19/17 00:01 88 135/84 (101) 05/19/17 00:00 100 05/19/17 00:00 80 05/19/17 00:00 97.7 05/19/17 00:00 18 05/18/17 23:55 87 05/18/17 23:50 79 05/18/17 23:45 78 05/18/17 23:40 81 05/18/17 23:35 78 05/18/17 23:30 77 05/18/17 23:25 77 05/18/17 23:20 77 05/18/17 23:15 83 05/18/17 23:10 78 05/18/17 23:05 82 05/18/17 23:01 80 128/70 (89) 05/18/17 23:00 83 05/18/17 23:00 100 05/18/17 22:11 87 135/75 (95) 05/18/17 22:10 87 05/18/17 22:05 83 05/18/17 22:01 82 05/18/17 22:00 98 05/18/17 22:00 85 05/18/17 21:55 83 05/18/17 21:50 85 05/18/17 21:45 82 05/18/17 21:40 81 05/18/17 21:35 82 05/18/17 21:30 91 05/18/17 21:15 89 05/18/17 21:10 99 05/18/17 21:05 90 05/18/17 21:01 95 107/50 (69) 05/18/17 21:00 98 05/18/17 21:00 97 05/18/17 20:05 92 05/18/17 20:05 93 100 05/18/17 20:05 98.1 14 05/18/17 20:01 105 128/62 (84) 05/18/17 20:00 97 100 05/18/17 20:00 98 05/18/17 19:55 99 05/18/17 19:55 99 100 05/18/17 19:50 100 05/18/17 19:50 98 99 05/18/17 19:45 97 100 05/18/17 19:45 96 05/18/17 19:35 99 05/18/17 19:35 98 99 05/18/17 19:31 98 128/75 (92) 05/18/17 19:30 100 05/18/17 19:30 100 05/18/17 19:30 99 05/18/17 19:25 101 99 05/18/17 19:25 103 05/18/17 19:20 100 99 05/18/17 19:20 99 05/18/17 19:15 108 100 05/18/17 19:15 106 05/18/17 19:10 99 100 9/13/17 19:10 100 13/17 19:05 100 13/17 19:05 107 13/17 19:05 109 13/17 19:01 103 128/57 (80) 05/18/17 19:00 100 13/17 19:00 102 05/18/17 19:00 101 05/18/17 18:55 106 05/18/17 18:55 99 05/18/17 18:55 103 05/18/17 18:50 99 13/17 18:50 99 13/17 18:50 97 05/18/17 18:45 103 05/18/17 18:45 105 17 18:45 100 05/18/17 18:40 97 05/18/17 18:40 98 05/18/17 18:35 93 05/18/17 18:35 94 05/18/17 18:31 93 130/89 (103) 17 18:30 100 05/18/17 18:30 99 17 18:25 101 05/18/17 18:25 102 05/18/17 18:20 100 05/18/17 18:20 99 05/18/17 18:15 93 05/18/17 18:15 92 05/18/17 18:10 99 05/18/17 18:10 98 05/18/17 18:08 98.1 05/18/17 18:05 100 05/18/17 18:05 99 05/18/17 18:02 100 126/70 (88) 17 18:00 18 05/18/17 18:00 103 05/18/17 18:00 103 05/18/17 17:55 97 05/18/17 17:55 98 13/17 17:50 92 13/17 17:50 93 13/17 17:45 101 13/17 17:45 102 13/17 17:40 105 13/17 17:40 105 13/17 17:35 97 13/17 17:35 98 13/17 17:32 111 126/52 (76) 13/17 17:30 102 13/17 17:30 104 13/17 17:25 106 05/18/17 17:25 105 05/18/17 17:20 97 05/18/17 17:20 93 05/18/17 17:15 104 05/18/17 17:15 102 05/18/17 17:10 96 05/18/17 17:10 96 05/18/17 17:05 102 05/18/17 17:05 103 05/18/17 17:01 98 120/77 (91) 05/18/17 17:00 94 05/18/17 17:00 94 05/18/17 17:00 17 05/18/17 16:55 102 05/18/17 16:55 103 05/18/17 16:50 98 05/18/17 16:50 97 05/18/17 16:45 91 05/18/17 16:45 91 05/18/17 16:40 98 05/18/17 16:40 96 05/18/17 16:35 92 05/18/17 16:35 93 05/18/17 16:31 98 112/72 (85) 05/18/17 16:30 104 05/18/17 16:30 104 05/18/17 16:26 90 107/45 (65) 05/18/17 16:25 99 05/18/17 16:25 99 05/18/17 16:21 102 118/67 (84) 05/18/17 16:20 94 05/18/17 16:20 94 05/18/17 16:16 91 116/53 (74) 05/18/17 16:15 98 05/18/17 16:15 98 05/18/17 16:11 112/66 (81) 05/18/17 16:11 99 05/18/17 16:10 97 05/18/17 16:10 97 05/18/17 16:06 91 05/18/17 16:06 106/67 (80) 05/18/17 16:05 93 05/18/17 16:05 93 05/18/17 16:01 95 109/60 (76) 05/18/17 16:00 88 05/18/17 16:00 98.4 16 05/18/17 16:00 87 05/18/17 15:56 94 119/66 (83) 05/18/17 15:55 88 05/18/17 15:55 89 05/18/17 15:51 89 118/54 (75) 05/18/17 15:50 90 05/18/17 15:50 92 05/18/17 15:46 93 115/53 (73) 05/18/17 15:45 89 05/18/17 15:41 95 109/52 (71) 05/18/17 15:40 91 05/18/17 15:36 91 116/69 (85) 05/18/17 15:35 97 05/18/17 15:31 102 112/69 (83) 05/18/17 15:30 103 05/18/17 15:26 106 99/65 (76) 05/18/17 15:25 104 05/18/17 15:21 94 122/63 (82) 05/18/17 15:20 99 05/18/17 15:18 98.4 05/18/17 15:15 96 116/68 (84) 05/18/17 15:15 93 05/18/17 15:10 89 05/18/17 15:07 92 122/47 (72) 05/18/17 14:55 92 Lab & Micro Results Test 05/18/17 09:05 05/18/17 11:50 05/18/17 13:30 05/18/17 17:15 White Blood Count 10.4 TH/MM3 12.1 TH/MM3 Red Blood Count 4.08 MIL/MM3 4.25 MIL/MM3 Hemoglobin 11.3 GM/DL 11.7 GM/DL Hematocrit 33.9 % 35.5 % Mean Corpuscular Volume 83.0 FL 83.5 FL Mean Corpuscular Hemoglobin 27.8 PG 27.5 PG Mean Corpuscular Hemoglobin Concent 33.5 % 32.9 % Red Cell Distribution Width 15.1 % 14.9 % Platelet Count 239 TH/MM3 275 TH/MM3 Mean Platelet Volume 9.3 FL 10.2 FL Blood Urea Nitrogen 10 MG/DL Creatinine 0.49 MG/DL Random Glucose 94 MG/DL Total Protein 6.6 GM/DL Albumin 2.6 GM/DL Calcium Level 9.2 MG/DL Alkaline Phosphatase 94 U/L Aspartate Amino Transf (AST/SGOT) 15 U/L Alanine Aminotransferase (ALT/SGPT) 23 U/L Total Bilirubin 0.3 MG/DL Sodium Level 136 MEQ/L Potassium Level 3.6 MEQ/L Chloride Level 103 MEQ/L Carbon Dioxide Level 23.9 MEQ/L Anion Gap 9 MEQ/L Estimat Glomerular Filtration Rate 147 ML/MIN Neutrophils (%) (Auto) 64.7 % Lymphocytes (%) (Auto) 26.8 % Monocytes (%) (Auto) 7.8 % Eosinophils (%) (Auto) 0.2 % Basophils (%) (Auto) 0.5 % Neutrophils # (Auto) 7.8 TH/MM3 Lymphocytes # (Auto) 3.2 TH/MM3 Monocytes # (Auto) 0.9 TH/MM3 Eosinophils # (Auto) 0.0 TH/MM3 Basophils # (Auto) 0.1 TH/MM3 CBC Comment DIFF FINAL Differential Comment Urine Color YELLOW Urine Turbidity HAZY Urine pH 6.5 Urine Specific [place] 1.021 Urine Protein TRACE mg/dL Urine Glucose (UA) NEG mg/dL Urine Ketones 10 mg/dL Urine Occult Blood NEG Urine Nitrite NEG Urine Bilirubin NEG Urine Urobilinogen LESS THAN 2.0 MG/DL Urine Leukocyte Esterase LARGE Urine RBC 5 /hpf Urine WBC 7 /hpf Urine Squamous Epithelial Cells 33 /hpf Urine Bacteria MOD /hpf Urine Mucus FEW /lpf Microscopic Urinalysis Comment CULTURE INDICATED Group B Streptococcus (PCR) NEGATIVE HIV (1&2) Antibody NEGATIVE Rubella Immunity Screen IMMUNE Rubella Antibody, Quantitative 19.5 IU/mL Test 05/18/17 23:57 Magnesium Level 4.4 MG/DL Date/Time Source Procedure Growth Status 05/18/17 13:30 Genital Genital Region Group B Streptococcus Screen Pending Received 05/18/17 11:50 Urine Clean Catch Urine Culture Pending Received Physical Exam GENERAL: Well-nourished, well-developed patient. CARDIOVASCULAR: Regular rate and rhythm without murmurs, gallops, or rubs. RESPIRATORY: Breath sounds equal bilaterally. No accessory muscle use. ABDOMEN/GI: Abdomen soft, non-tender. GENITOURINARY: External Genitalia: intact and normal in appearance Cervix: posterior Dilatation: 0-1 Effacement: 30 Station: -3 Presentation: vertex Membranes: intact Uterine Contractions: irregular contractions FHT's: Category: cat1 Baseline: 130 Reactive: positive Variability: moderate Decels: none EXTREMITIES: No cyanosis or edema, non-tender, without signs of DVT. (Nirmala Lynn MD R1) Assessment and Plan Problem List: (1) 36 weeks gestation of ICD Codes: Z3A.36 - 36 weeks gestation of Status: Acute (2) Pre-eclampsia ICD Codes: O14.90 - Unspecified pre-eclampsia, unspecified trimester Status: Acute (3) Gestational diabetes ICD Codes: O24.419 - Gestational diabetes mellitus in , unspecified control Status: Acute Assessment and Plan 31 yo at 36/5 with pre-eclampsia and gestational diabetes admitted for induction of labor. 1. IUP at 36/5 -continue routine care -encourage hydration -cytotec x4 for induction of labor, plan to cytotec to 50mcg at next dosing 2. pre-eclampsia -pt on magnesium -exam wnl 3. Gestational diabetes -continue with sliding scale sdw Dr. Sanchez and Dr. Ahumada (Nirmala Lynn MD R1) Nirmala Lynn MD R1 May 19, 2017 08:26 Hailee Sanchez MD May 19, 2017 09:04
[2017-05-19] MEDS: INSULIN ASPART SUPPLEMENTAL SCALE SQ SCH ×3 (09:00→17:00)
[2017-05-19] MEDS ORDERED: MISOPROSTOL 100 MCG TAB VAGINAL ONE (09:00)
[2017-05-19] MEDS: MAGNESIUM SULFATE 40 GM PREMIX 1,000 ML IV SCH (09:49)
[2017-05-19] MEDS ORDERED: PILL SPLITTER OTHER PRN (10:15)
[2017-05-19] MEDS ORDERED: OB CCAP2 (14:55)
[2017-05-19] MEDS ORDERED: OXYTOCIN 30 UNITS-500ML PREMIX 500 ML ONE (20:29)
[2017-05-19] MEDS ORDERED: fentaNYL 2MCG-BUPIV 0.125% INJ 100 ML ONE (23:54)
[2017-05-20] VITALS (15 sets, daily range): BP systolic 82–120; BP diastolic 34–72; PULSE 70–102; RESP 18; TEMP 97.8–98.3
[2017-05-20] MEDS: LACTATED RINGER'S 1000 ML INJ 1,000 ML IV SCH ×2 (03:35→08:37)
[2017-05-20] MEDS ORDERED: OXYTOCIN 30 UNITS/NS 500ML PREMIX IV SCH (04:45)
[2017-05-20] MEDS ORDERED: NO SYSTEM NARCOTICS PRN (05:00)
[2017-05-20] MEDS ORDERED: fentaNYL 2MCG-BUPIV 0.125% 100 ML EPIDURAL SCH (05:00)
[2017-05-20] MEDS ORDERED: ePHEDrine/NS 25 MG/5 ML SYR IV PRN (05:00)
[2017-05-20] MEDS ORDERED: DO NOT ADMINISTER ANTICOAGULANTS PRN (05:00)
[2017-05-20] MEDS: MAGNESIUM SULFATE 40 GM PREMIX 1,000 ML IV SCH (05:40)
--- NOTE | 2017-05-20 09:16 | PD.LABORPN ---
Subjective Subjective Patient seen and examined by medical team this morning. No acute events overnight per nursing staff. Vital signs currently stable. Patient endorses no headaches, visual changes, right upper quadrant pain, or other neurological symptoms. Patient has no complaints and denies complete review of systems. Objective Vital Signs Vital Signs Date Time Temp Pulse Resp B/P (MAP) Pulse Ox O2 Delivery O2 Flow Rate FiO2 05/20/17 06:23 18 05/20/17 05:01 18 Objective Pelvic Exam: Cervix: Mid position Dilatation: 9-10 cm Effacement: 100% Station: 0 Presentation: Vertex Membranes: AROM Uterine Contractions: 2-3m FHT's: Category: 2 Baseline: 150s Reactive: Positive Variability: Moderate Decels: Possible variable decelerations with intermittent accelerations Weeks Gestation: 37 Gest Age Assessed Date: May 20, 2017 Gest Age Assessed Time: 08:49 Pt started active labor?: Yes Active labor start date: May 19, 2017 Active labor start time: 23:50 Medical induction of labor?: Yes Medical induction start date: May 18, 2017 Medical induction start time: 14:00 Artificial rupture of membrane: Yes Artificial ROM date: May 19, 2017 Artifical ROM time: 16:53 Assessment/Plan Problem List: (1) 36 weeks gestation of ICD Codes: Z3A.36 - 36 weeks gestation of Status: Acute (2) Pre-eclampsia ICD Codes: O14.90 - Unspecified pre-eclampsia, unspecified trimester Status: Acute (3) Gestational diabetes ICD Codes: O24.419 - Gestational diabetes mellitus in , unspecified control Status: Acute Assessment and Plan Mrs. Quesada is a 31-year-old at 37 weeks currently in active labor. 1. IUP at 37 weeks -Continue routine OB care -Patient currently in active labor with Pitocin at 4 mU/m -No complaints per patient -FHT category 2, continue to monitor 2. Pre-eclampsia -Patient currently on Mg Sulfate infusion -Exam WNL -VS WNL SDW: Anatoliy Ervin MD R2 May 20, 2017 09:16
--- NOTE | 2017-05-20 09:42 | PD.OB.DELI ---
Weeks gestation: 37 Gest age assessed date: May 20, 2017 Gest age assessed time: 08:49 Pt started active labor?: Yes Active labor start date: May 19, 2017 Active labor start time: 23:50 Medical induction of labor?: Yes Medical induction start date: May 18, 2017 Medical induction start time: 14:00 Artificial rupture of membrane: Yes Artificial ROM date: May 19, 2017 Artifical ROM time: 16:53 Anesthesia: Epidural Episiotomy: None Vaginal Delivery: Normal Presentation: Occiput anterior Nuchal Cord: None Delayed cord clamping (45 sec): Yes Infant: Female Delivery date: May 20, 2017 Delivery time: 09:24 One Minute : 8 Five Minute : 9 Weight: 2595 Placenta: Spontaneous delivery Laceration: No lacerations Estimated blood loss: 250 Additional Information delivery provider: Dr. Ted polancow: Nirmala Weinberg MD May 20, 2017 09:42
[2017-05-20] MEDS ORDERED: ONDANSETRON ODT 4 MG TAB PO PRN (09:45)
[2017-05-20] MEDS ORDERED: BENZOCAINE 20% TOPICAL SPRAY 60 ML CAN TOPICAL PRN (09:45)
[2017-05-20] MEDS ORDERED: WITCH HAZEL 50%/GLYCERIN 12.5% 40 PAD JAR TOPICAL PRN (09:45)
[2017-05-20] MEDS ORDERED: SODIUM CHLORIDE 0.9% FLUSH 10 ML FLUSH IV FLUSH PRN (09:45)
[2017-05-20] MEDS ORDERED: ALUMINUM/MAGNESIUM/SIMETH 30 ML CUP PO PRN (09:45)
[2017-05-20] MEDS ORDERED: DOCUSATE SODIUM 50 MG/SENNA 8.6 MG TAB PO PRN (09:45)
[2017-05-20] MEDS ORDERED: OXYTOCIN 30 UNITS-500ML PREMIX 500 ML IV SCH (11:00)
[2017-05-20] MEDS ORDERED: MEASLES, MUMPS, RUBELLA VACCINE 0.5 ML VIAL SQ ONE (16:00)
[2017-05-20] MEDS ORDERED: DIPHTH/TETANUS/ACEL PERTUSSIS (BOOSTER) 0.5 ML VIAL/PFS IM ONE (16:00)
[2017-05-20] MEDS: IBUPROFEN 600 MG TAB PO PRN (19:50)
[2017-05-20] MEDS ORDERED: ZOLPIDEM TARTRATE 5 MG TAB PO PRN (21:00)
[2017-05-20] MEDS ORDERED: SODIUM CHLORIDE 0.9% FLUSH 10 ML FLUSH IV FLUSH SCH (21:00)
[2017-05-20] MEDS: ACETAMINOPHEN 325 MG TAB PO PRN (22:10)
[2017-05-21] VITALS (16 sets, daily range): BP systolic 86–140; BP diastolic 50–83; PULSE 63–94; RESP 16–20; TEMP 97.7–98
--- NOTE | 2017-05-21 09:15 | HHI.OB ---
Subjective Post Day: 1 Remarks Pt is a 31 yo now, s/p IOL for pre-eclampsia superimposed on Chronic HTN. She was also diet controlled gestational diabetic. She denies any symptoms Voiding well, moderate lochia. No LE pain. Objective Vitals/I&O Vital Signs Date Time Temp Pulse Resp B/P (MAP) Pulse Ox O2 Delivery O2 Flow Rate FiO2 05/21/17 07:01 68 90/58 (69) 05/21/17 06:30 18 05/21/17 06:01 74 90/57 (68) 05/21/17 05:06 69 95/65 (75) 05/21/17 04:01 63 93/56 (68) 05/21/17 03:13 16 05/21/17 03:01 65 95/63 (74) 05/21/17 02:01 66 88/58 (68) 05/21/17 01:01 65 86/50 (62) 05/21/17 00:01 77 101/60 (74) 05/20/17 23:01 72 82/34 (50) 05/20/17 22:01 70 92/44 (60) 05/20/17 21:58 18 05/20/17 21:00 86 108/65 (79) 05/20/17 20:25 18 05/20/17 20:25 97.8 05/20/17 20:00 101 107/66 (80) 05/20/17 19:00 100 109/67 (81) 05/20/17 18:01 91 107/72 (84) 05/20/17 18:00 18 05/20/17 17:00 18 05/20/17 17:00 98.3 87 120/62 (81) 05/20/17 16:00 102 115/67 (83) 05/20/17 15:07 18 05/20/17 15:00 18 05/20/17 15:00 100 115/63 (80) 05/20/17 14:00 101 119/64 (82) 05/20/17 13:00 18 Objective Remarks GENERAL: Well-nourished, well-developed patient. CARDIOVASCULAR: Regular rate and rhythm without murmurs, gallops, or rubs. RESPIRATORY: Breath sounds equal bilaterally. No accessory muscle use. ABDOMEN/GI: Abdomen soft, non-tender. Fundus: Firm, non-tender at umbilicus. GENITOURINARY: Light to moderate bleeding. EXTREMITIES: No cyanosis or edema, non-tender, without signs of DVT. Medications and IVs Current Medications Medications (Trade) Dose Ordered Sig/Jacquelyn Route Start Time Stop Time Status Last Admin (D50w (Vial) Inj) 50 ml UNSCH PRN IV 05/18/17 14:00 (Glucagon Inj) 1 mg UNSCH PRN OTHER 05/18/17 14:00 (NovoLOG SUPPLEMENTAL SCALE) 1 ACHS SLIDING SCALE SQ 05/18/17 17:00 05/19/17 09:00 Magnesium Sulfate 1,000 ml @ 50 mls/hr Q20H IV 05/18/17 13:54 05/20/17 05:40 (Pill Splitter) 1 ea UNSCH PRN OTHER 05/19/17 10:15 Fentanyl/ Bupivacaine HCl 100 ml @ 0 mls/hr TITRATE EPIDURAL 05/20/17 05:00 05/20/17 05:01 (NS Flush) 2 ml BID IV FLUSH 05/20/17 21:00 (NS Flush) 2 ml UNSCH PRN IV FLUSH 05/20/17 09:45 (Tylenol) 650 mg Q4H PRN PO 05/20/17 09:45 05/20/17 22:10 (Motrin) 600 mg Q6H PRN PO 05/20/17 09:45 05/20/17 19:50 (Americaine 20% Top Spr) 1 spray Q4H PRN TOPICAL 05/20/17 09:45 (Tucks Pads) 1 applic QID PRN TOPICAL 05/20/17 09:45 (Cheryl-Colace) 2 tab Q12H PRN PO 05/20/17 09:45 (Ambien) 5 mg HS PRN PO 05/20/17 21:00 (Mag-Al Plus Susp Liq) 15 ml Q8H PRN PO 05/20/17 09:45 (Zofran Odt) 4 mg Q6H PRN PO 05/20/17 09:45 Assessment/Plan Problem List: (1) Pre-eclampsia ICD Codes: O14.90 - Unspecified pre-eclampsia, unspecified trimester Status: Acute (2) Gestational diabetes ICD Codes: O24.419 - Gestational diabetes mellitus in , unspecified control Status: Resolved Assessment and Plan 31 yo P2, s/p . IOL for pre-eclampsia. 1. Pre-eclampsia Pt was placed on Magnessium sulphate . BPs low. Will discontinue Mag Sulphate 3. Gestational diabetes Fasting glucose 101. Discontinue glucose testing. Likely DC home tomorrow. Esteban Tan MD May 21, 2017 09:15
[2017-05-21 09:29] LABS: HEMATOCRIT 33.2 % (35.0-46.0); MEAN CELL VOLUME 82.7 FL (80.0-100.0); MEAN CORPUSCULAR HEMOGLOBIN 27.4 PG (27.0-34.0); MEAN CORPUSCULAR HGB CONC 33.1 % (32.0-36.0); PLATELET COUNT 272 TH/MM3 (150-450); RED BLOOD COUNT 4.02 MIL/MM3 (4.00-5.30); REVIEW FLAG FINAL; WHITE BLOOD COUNT 10.1 TH/MM3 (4.0-11.0)
[2017-05-21] MEDS: ACETAMINOPHEN 325 MG TAB PO PRN (11:15)
[2017-05-21] MEDS: IBUPROFEN 600 MG TAB PO PRN (11:16)
[2017-05-22] VITALS: BP 101/67; PULSE 62; RESP 16; TEMP 98
[2017-05-22 03:00] VITALS: BP 144/83; RESP 20; TEMP 98.2
[2017-05-22 05:32] VITALS: BP 125/79; PULSE 68; RESP 16; TEMP 97.9
[2017-05-22] MEDS: IBUPROFEN 600 MG TAB PO PRN (05:50)
[2017-05-22] MEDS ORDERED: IBUP-232 PO (07:21)
--- NOTE | 2017-05-22 07:22 | HHI.DCPOC ---
Discharge Care Plan Diagnosis: (1) Normal vaginal delivery (2) Pre-eclampsia (3) Gestational diabetes Report Symptoms to Your Doctor -Temperature above 100.5 degrees -Redness, of incision or excessive or foul smelling drainage -Unusual pain or calf pain -Increased vaginal bleeding -Painful or difficulty urinating -Feelings of extreme sadness or anxiety after 2 weeks Goals to Promote Your Health * To prevent worsening of your condition and complications * To maintain your health at the optimal level Directions to Meet Your Goals Take your medications as prescribed Follow your dietary instruction Follow activity as directed Ensure plenty of rest for recovery Drink fluids for hydration Keep your appointments as scheduled Take your immunizations and boosters as scheduled If your symptoms worsen call your PCP, if no PCP go to Urgent Care Center or Emergency Room Smoking is Dangerous to Your Health. Avoid second hand smoke Call the 24-hour crisis hotline for domestic abuse at Winnie Bhatti MD R2 May 22, 2017 07:22
[2017-05-22 08:01] VITALS: BP 128/78; PULSE 79; RESP 16; TEMP 98.2
--- NOTE | 2017-05-22 08:36 | HHI.OB ---
Subjective Post Day: 2 Remarks day # 2. AFVSS overnight. BPs wnl since delivery. Magnesium d/c'd yesterday. Wants BTL. Decreased lochia. Denies dysuria. No breast tenderness. Feeding via breast. Appetite good. No nausea or vomiting. Ambulating well. Denies calf pain or shortness of breath. Otherwise, she is doing well this morning and has no other concerns. (Winnie Bhatti MD R2) Remarks Patient seen and evaluated with resident under direct supervision, agree with assessment and plan. (Nehemiah Rodriguez MD) Objective Vitals/I&O Vital Signs Date Time Temp Pulse Resp B/P (MAP) Pulse Ox O2 Delivery O2 Flow Rate FiO2 05/22/17 05:32 97.9 68 16 125/79 (94) 05/22/17 03:00 98.2 20 144/83 (103) 05/22/17 00:00 62 16 101/67 (78) 05/22/17 00:00 98.0 05/21/17 19:37 98.0 70 18 140/83 (102) 05/21/17 15:02 97.9 80 18 112/63 (79) 05/21/17 12:13 81 124/71 (88) 05/21/17 12:13 97.7 20 05/21/17 10:01 109/60 (76) 05/21/17 10:01 98.0 94 20 05/21/17 09:01 84 92/68 (76) Objective Remarks GENERAL: Well-nourished, well-developed female. CARDIOVASCULAR: Regular rate and rhythm without murmurs, gallops, or rubs. RESPIRATORY: Breath sounds equal bilaterally. No accessory muscle use. ABDOMEN/GI: Abdomen soft, non-tender. Fundus: Firm, non-tender below umbilicus. GENITOURINARY: Light to moderate bleeding. EXTREMITIES: No cyanosis or edema, non-tender, without signs of DVT. Medications and IVs Current Medications Medications (Trade) Dose Ordered Sig/Jacquelyn Route Start Time Stop Time Status Last Admin (Pill Splitter) 1 ea UNSCH PRN OTHER 05/19/17 10:15 Fentanyl/ Bupivacaine HCl 100 ml @ 0 mls/hr TITRATE EPIDURAL 05/20/17 05:00 05/20/17 05:01 (NS Flush) 2 ml BID IV FLUSH 05/20/17 21:00 (NS Flush) 2 ml UNSCH PRN IV FLUSH 05/20/17 09:45 (Tylenol) 650 mg Q4H PRN PO 05/20/17 09:45 05/21/17 11:15 (Motrin) 600 mg Q6H PRN PO 05/20/17 09:45 05/22/17 05:50 (Americaine 20% Top Spr) 1 spray Q4H PRN TOPICAL 05/20/17 09:45 (Tucks Pads) 1 applic QID PRN TOPICAL 05/20/17 09:45 (Cheryl-Colace) 2 tab Q12H PRN PO 05/20/17 09:45 05/21/17 11:15 (Ambien) 5 mg HS PRN PO 05/20/17 21:00 (Mag-Al Plus Susp Liq) 15 ml Q8H PRN PO 05/20/17 09:45 (Zofran Odt) 4 mg Q6H PRN PO 05/20/17 09:45 (Winnie Bhatti MD R2) Assessment/Plan Problem List: (1) Pre-eclampsia ICD Codes: O14.90 - Unspecified pre-eclampsia, unspecified trimester Status: Acute (2) Gestational diabetes ICD Codes: O24.419 - Gestational diabetes mellitus in , unspecified control Status: Resolved Assessment and Plan 31 yo P2, s/p . PPD #2. IOL for pre-eclampsia. 1. Pre-eclampsia Pt was placed on Magnesium sulphate . Dc'd 05/21. BPs now wnl Was on labetolol antepartum, can hold home labetalol at this time. 3. Gestational diabetes Fasting glucose 101 05/21, Accuchecks d/c'd. Regular diet. DC home today DW Dr. Michael MD (Winnie Bhatti MD R2) Winnie Bhatti MD R2 May 22, 2017 08:36 Nehemiah Rodriguez MD May 22, 2017 09:45
== END 2017-05-22 11:14 | disposition home or self-care (01) | DRG 775 ==
LOC: HOBED 07:48 → H2EB 11:29 → H2EA 05-20 12:39 → H1EA 05-21 09:43
PROVIDERS: ADMIT Obstetrics & Gynecology; ATTEND Obstetrics & Gynecology
PROC: 3E0P7GC Introduction of Other Therapeutic Substance into Female Reproductive, Via Natural or Artificial Opening (ICD-10-PCS; 2017-05-18)
PROC: 10E0XZZ Delivery of Products of Conception, External Approach (ICD-10-PCS; principal; 2017-05-20)
DX: O11.4 Pre-existing hypertension with pre-eclampsia, complicating childbirth (principal); O24.429 Gestational diabetes mellitus in childbirth, unspecified control; Z37.0 Single live birth; Z3A.37 37 weeks gestation of pregnancy
CPT/HCPCS: 36415; 59025; 76819; 76820; 80053; 80074; 81001; 82948; 83735; 85025; 85027; 86592; 86703; 86762; 86850; 86900; 86901; 87081; 87086; 87150; 87389; 90715; J1815; J2405; J2590; J3010; J3475; J7120